=== PATIENT | male | born 1950 | race Caucasian/White ===

== ENCOUNTER 2025-06-08 07:14 | Emergency (ER) | payer SELFPAY ==
[~2025-06-08] VITALS: Ht 170.2 cm; Wt 71.0 kg
[2025-06-08 07:32] VITALS: O2SAT 98
[2025-06-08] MEDS ORDERED: CHLO25TA2 PO (07:34)
[2025-06-08] MEDS ORDERED: OMEP20TA23 PO (07:34)
[2025-06-08] MEDS ORDERED: LEVO25TA7 PO (07:34)
[2025-06-08] MEDS ORDERED: METO100T16 PO (07:34)
[2025-06-08 08:18] LABS: CLARITY URINE CLEAR (CLEAR); COLOR URINE YELLOW (YELLOW); GLUCOSE URINE NEGATIVE (NEGATIVE); KETONES URINE NEGATIVE (NEGATIVE); LEUKOCYTE ESTERASE URINE NEGATIVE (NEGATIVE); NITRITE URINE NEGATIVE (NEGATIVE); OCCULT BLOOD URINE NEGATIVE (NEGATIVE); PH URINE 5.5 (4.5-8.0); PROTEIN URINE 2+ (NEGATIVE); SPECIFIC GRAVITY URINE 1.013 (1.005-1.030); UROBILINOGEN URINE 0.2 E.U./dL (0.2-1.0)
[2025-06-08 09:14] LABS: BASOPHILS % 0.2 % (0.0-2.0); EOSINOPHILS % 0.2 % (0.0-5.0); HEMATOCRIT. 49.2 % (42.0-52.0); HEMOGLOBIN. 16.6 g/dL (14.0-18.0); LYMPHOCYTES % 8.7 % (20.0-50.0); MEAN PLATELET VOLUME 8.4 fl (7.4-10.4); MONOCYTES % 6.3 % (2.0-8.0); NEUTROPHILS % 84.6 % (40.0-76.0); PLATELET 288 x1000/uL (130-400); RED BLOOD CELL COUNT 5.21 mill/uL (4.7-6.1); RED CELL DISTRIBUTION WIDTH 11.9 % (11.6-14.6)
[2025-06-08 09:29] LABS: CREATININE 1.4 mg/dL (0.6-1.3)
[2025-06-08 09:30] LABS: UREA NITROGEN BLOOD 16.0 mg/dL (9-23)
[2025-06-08 09:32] LABS: ASPARTATE AMINOTRANSFERASE 30 IU/L (<34); BILIRUBIN DIRECT 0.3 mg/dL (<=3.0); BILIRUBIN TOTAL 0.8 mg/dL (0.1-1.0); PROTEIN TOTAL 8.7 g/dL (6.0-8.3)
[2025-06-08] MEDS: METOPROLOL SUCCINATE 50MG ER TABLET PO ONE (09:32)
[2025-06-08 09:34] LABS: INR 1.0
[2025-06-08 09:49] LABS: SQUAMOUS EPITHELIAL CELL URINE FEW /lpf (RARE/1+)
[2025-06-08 09:50] LABS: BACTERIA URINE TRACE; MUCUS URINE TRACE /lpf (NONE/TRACE)
[2025-06-08 09:53] LABS: RBC URINE NONE SEEN /hpf (0-2); WBC URINE 0-2 /hpf (0-2)
[2025-06-08] MEDS: ACETAMINOPHEN 325MG TABLET PO ONE (10:17)
[2025-06-08] MEDS ORDERED: TAMS-54 MT (10:37)
[2025-06-08 10:45] VITALS: BP 138/94; PULSE 98; RESP 18; TEMP 36.8; O2SAT 97
== END 2025-06-08 10:48 | disposition home or self-care (01) ==
LOC: ER 07:14
DX: N40.1 Benign prostatic hyperplasia with lower urinary tract symptoms (principal); R35.0 Frequency of micturition; R06.02 Shortness of breath
CPT/HCPCS: 36415; 74176; 80048; 80076; 81003; 85025; 93005; 99284

== ENCOUNTER 2025-07-30 05:26 | Emergency (ER) | payer MEDICARE ==
[~2025-07-30] VITALS: Ht 167.6 cm; Wt 77.0 kg
[~2025-07-30 05:26] MED LIST: CHLO25TA2 PO; LEVO25TA7 PO; METO100T16 PO; OMEP20TA23 PO; TAMS-54 MT
[2025-07-30 05:29] VITALS: O2SAT 98
[2025-07-30 06:13] LABS: CLARITY URINE CLEAR (CLEAR); COLOR URINE YELLOW (YELLOW); GLUCOSE URINE NEGATIVE (NEGATIVE); KETONES URINE NEGATIVE (NEGATIVE); LEUKOCYTE ESTERASE URINE NEGATIVE (NEGATIVE); NITRITE URINE NEGATIVE (NEGATIVE); OCCULT BLOOD URINE NEGATIVE (NEGATIVE); PH URINE 5.5 (4.5-8.0); PROTEIN URINE TRACE (NEGATIVE); SPECIFIC GRAVITY URINE 1.012 (1.005-1.030); UROBILINOGEN URINE 0.2 E.U./dL (0.2-1.0)
[2025-07-30] MEDS: PHENAZOPYRIDINE HCL 100MG TABLET PO ONE (06:30)
[2025-07-30 07:30] LABS: BASOPHILS % 0.6 % (0.0-2.0); EOSINOPHILS % 0.6 % (0.0-5.0); HEMATOCRIT. 39.9 % (42.0-52.0); HEMOGLOBIN. 13.9 g/dL (14.0-18.0); LYMPHOCYTES % 11.1 % (20.0-50.0); MEAN PLATELET VOLUME 7.8 fl (7.4-10.4); MONOCYTES % 5.7 % (2.0-8.0); NEUTROPHILS % 82.0 % (40.0-76.0); PLATELET 338 x1000/uL (130-400); RED BLOOD CELL COUNT 4.24 mill/uL (4.7-6.1); RED CELL DISTRIBUTION WIDTH 12.3 % (11.6-14.6)
[2025-07-30 07:34] LABS: CREATININE 1.5 mg/dL (0.6-1.3); UREA NITROGEN BLOOD 18.0 mg/dL (9-23)
[2025-07-30 07:40] LABS: SQUAMOUS EPITHELIAL CELL URINE FEW /lpf (RARE/1+); WBC URINE 0-2 /hpf (0-2)
[2025-07-30 07:41] LABS: BACTERIA URINE NONE SEEN; RBC URINE 0-2 /hpf (0-2)
[2025-07-30] MEDS ORDERED: TOPUD PO (07:56)
[2025-07-30 08:13] VITALS: BP 140/70; PULSE 65; RESP 15; TEMP 36.9; O2SAT 99
== END 2025-07-30 08:15 | disposition home or self-care (01) ==
LOC: ER 05:26 → CANBEDREQ 07:59 → ER 08:15
DX: R30.0 Dysuria (principal); E03.9 Hypothyroidism, unspecified; I10 Essential (primary) hypertension; Z87.440 Personal history of urinary (tract) infections
CPT/HCPCS: 36415; 80048; 81003; 85025; 87077; 87186; 99283